=== PATIENT | female | born 1980 | race Caucasian/White ===

== ENCOUNTER 2020-11-08 22:25 | Inpatient (IN) | payer OTHER ==
[2020-11-08] MEDS ORDERED: Fentanyl 100 MCG/2 ML VIAL ONE (22:28)
[2020-11-08] MEDS ORDERED: Albuterol Sulfate 2.5 mg/3 ml Neb ONE (22:29)
[2020-11-08] MEDS ORDERED: Midazolam HCl 5 mg/ml Vial ONE (22:31)
[2020-11-08] MEDS ORDERED: Propofol 1,000 MG/100 ML VIAL IV ONE (22:31)
[2020-11-08] MEDS ORDERED: PROPOFOL 0 ML ONE (22:32)
[2020-11-08 22:44] LABS: Actual Bicarbonate (HCO3a) 18.3 mEq/L (22-28); Analyzer IN Cardio ER; Base Excess (BEa) -9.2 mEq/L (-2.0 to +3.0); CO2 Tension 46.5 mmHg (35.0-45.0); Calcium, Ionized (arterial) 1.18 mmol/L (1.12-1.30); Carboxyhemoglobin (COHb) 0.3 gm% (0.0-3.0); Hemoglobin (Hb) 11.6 g/dL (12.0-16.0); O2 Tension (PaO2), arterial 82.8 mmHg (80.0-100.0); Potassium - ABG Lab 4.33 mmol/L (3.70-5.30)
[2020-11-08 22:45] LABS: #Basophils 0.1 thou/uL (0.0-0.2); #Lymphocytes 1.5 thou/uL (1.20-3.40); #Monocytes 0.3 thou/uL (0.11-0.59); %Basophils 0.3 % (0.0-1.0); %Eosinophils 0.3 % (0.0-10.0); %Lymphocytes 8.4 % (21.0-51.0); %Monocytes 1.7 % (0.0-10.0); %Neutrophils 89.3 % (42.0-75.0); Hemoglobin 11.3 g/dL (12.0-16.0); Mean Corpuscular HGB CONC 33.7 g/dL (32.0-36.0); Mean Corpuscular Hemoglobin 30.6 pg (27.0-31.0); Mean Corpuscular Volume 90.7 fL (78.0-98.0); Mean Platelet Volume 7.4 fL (7.4-10.4); Platelet Count 368 thou/uL (130-400); Red Blood Cell (RBC) Count 3.71 mill/uL (4.20-5.40); White Blood Cell (WBC) Count 17.9 thou/uL (4.8-10.8)
[2020-11-08 22:52] LABS: ALV-art Gradient 358.175 mmHg (0-20); Puncture Site RRA; pH, Arterial 7.21 (7.35-7.45)
[2020-11-08] MEDS ORDERED: Magnesium 2 GM/50 ML BAG (IN WATER) ONE (23:05)
[2020-11-08] MEDS ORDERED: methylPREDNISolone Sod Succ 40 MG VIAL ONE (23:05)
[2020-11-08 23:09] LABS: PTT 26.8 sec (22.9-36.1); Prothrombin Time 13.4 sec (12.0-14.7)
[2020-11-08 23:27] LABS: ALT (SGPT) 14 U/L (8-55); AST (SGOT) 14 U/L (5-34); Albumin 4.3 g/dL (3.5-5.0); Alkaline Phosphatase 89 U/L (40-110); Anion Gap 13 mmol/L (10-20); BUN (Urea Nitrogen) 10 mg/dL (7.0-18.7); Bilirubin, Total Less than 0.2 mg/dL (0.2-1.2); Calc. Creatinine Clearance 0 mL/min (70-130); Calcium 8.6 mg/dL (7.8-10.44); Carbon Dioxide 19 mmol/L (22-29); Chloride 109 mmol/L (98-107); Globulin 3.3 g/dL (2.4-3.5); Glucose 135 mg/dL (70-105); Potassium 4.3 mmol/L (3.5-5.1); Protein, Total 7.6 g/dL (6.0-8.3); Sodium 137 mmol/L (136-145)
[2020-11-08] MEDS ORDERED: EPINEPHrine 4 MG in Dextrose 5% in Water 250 ML IV SCH (23:30)
[2020-11-08 23:33] LABS: Acetaminophen Less than 6.0 mcg/mL (10.0-30.0); Alcohol Less than 10 mg/dL (Less than 10); Lipase 35 U/L (8-78); Magnesium 1.8 mg/dL (1.6-2.6); Salicylate Less than 8.0 mg/dL (15.0-30.0)
[2020-11-08] MEDS ORDERED: EPINEPHrine 1 MG/10 ML Abboject SYRINGE ONE (23:41)
[2020-11-09] MEDS ORDERED: Ondansetron ODT 4 MG TAB PO PRN (00:28)
[2020-11-09] MEDS ORDERED: Acetaminophen 650 MG Suppository PR PRN (00:28)
[2020-11-09 00:30] LABS: SARS-CoV-2 NAA Rapid Test Not Detected (NotDetected)
[2020-11-09] MEDS ORDERED: Ventilator Sedation Protocol 1 EACH FS SCH (00:30)
[2020-11-09] MEDS ORDERED: DISCONTINUE PREVIOUS NARCOTIC PAIN MEDICATIONS AND BENZODIAZEPINES FS SCH (00:45)
[2020-11-09] MEDS ORDERED: Propofol BOLUS 1,000 MG/100 ML VIAL IV PRN (00:45)
[2020-11-09] MEDS ORDERED: Fentanyl BOLUS 250 ML IVPB PRN (00:45)
[2020-11-09 00:48] LABS: Amphetamine Not Detected (NotDetected); Barbiturates Screen Not Detected (NotDetected); Benzodiazepine Screen Not Detected (NotDetected); Cocaine Metabolite Screen Not Detected (NotDetected); Methadone Not Detected (NotDetected); Methamphetamine Not Detected (NotDetected); Opiate Screen Not Detected (NotDetected); Oxycodone Screen Not Detected (NotDetected); Phencyclidine (PCP) Not Detected (NotDetected); THC/Cannabinoid Screen Not Detected (NotDetected); Tricyclic Screen Not Detected (NotDetected)
[2020-11-09 01:09] LABS: Lactic Acid 3.9 mmol/L (0.5-2.2)
[2020-11-09] MEDS ORDERED: Piperacillin/Tazobactam 3.375 GM in Sodium Chloride 0.9% 100 ML IVPB SCH ×2 (02:00→08:00)
[2020-11-09] MEDS: Propofol 1,000 MG/100 ML VIAL IV PRN ×2 (03:02→07:29)
[2020-11-09] MEDS: Morphine 2 MG/ML VIAL SLOW IVP PRN ×3 (03:21→20:48)
[2020-11-09] MEDS: Lorazepam 2 MG/ML VIAL SLOW IVP PRN ×2 (03:26→07:17)
[2020-11-09 05:21] LABS: Anion Gap 20 mmol/L (10-20); BUN (Urea Nitrogen) 12 mg/dL (7.0-18.7); Calc. Creatinine Clearance 98 mL/min (70-130); Calcium 7.5 mg/dL (7.8-10.44); Carbon Dioxide 11 mmol/L (22-29); Chloride 108 mmol/L (98-107); Glucose 331 mg/dL (70-105); Potassium 3.9 mmol/L (3.5-5.1); Sodium 135 mmol/L (136-145)
[2020-11-09 05:22] LABS: Band 6 % (5-11); Hemoglobin 10.3 g/dL (12.0-16.0); Hypochromia SLIGHT = 6-15 cells (100X) (0-5/hpf); Lymphocytes 4 % (21-51); MDiff Complete? YES; Mean Platelet Volume 7.6 fL (7.4-10.4); Neutrophil 90 % (42-75); Platelet Count 438 thou/uL (130-400); Platelet Morphology Comment Appears Increased; RBC Distribution Width 14.2 % (11.5-14.5); Red Blood Cell (RBC) Count 3.32 mill/uL (4.20-5.40); White Blood Cell (WBC) Count 29.6 thou/uL (4.8-10.8)
[2020-11-09 05:23] LABS: Lactic Acid 9.6 mmol/L (0.5-2.2)
[2020-11-09] MEDS: Sodium Chloride 0.9% 1,000 ML IV SCH ×3 (05:30→20:49)
[2020-11-09] MEDS ORDERED: Vancomycin 1.5 GRAM/300 ML BAG 1.5 GM in Premix Bag 1 BAG IVPB SCH (05:50)
[2020-11-09] MEDS ORDERED: Piperacillin/Tazobactam 4.5 GM in Sodium Chloride 0.9% 100 ML IVPB SCH (05:51)
[2020-11-09] MEDS: Vancomycin HCl 1.5 GM in Sodium Chloride 0.9% 250 ML 300 ML IVPB SCH ×2 (06:07→18:35)
[2020-11-09] MEDS ORDERED: Sodium Chloride 0.9% 1,000 ML IV SCH ×3 (06:15→21:00)
[2020-11-09 06:18] LABS: Bacteria/HPF None Seen HPF (None Seen); Bilirubin Negative (Negative); Blood, Urine 1+ (Negative); Clarity Clear (Clear); Glucose, Urine (Dipstick) >=1000 mg/dL (Negative); Ketone, Urine 10 mg/dL (Negative); Leukocyte 25 Leu/uL (Negative); Nitrite Negative (Negative); Protein, Urine (Dipstick) 50 mg/dL (Neg-Trace); Specific Gravity, Urine 1.017 (1.002-1.036); Squamous Epithelial 0-3 HPF (0-3); Urobilinogen Normal mg/dL (Less than 2)
[2020-11-09 06:20] LABS: Urine Culture Reflex Yes Yes
[2020-11-09] MEDS ORDERED: Dextrose 50% Abboject 50 ML SYRINGE SLOW IVP PRN (06:36)
[2020-11-09] MEDS ORDERED: HumaLOG 300 UNITS/3 ML VIAL SC PRN (06:36)
[2020-11-09] MEDS ORDERED: Dextrose 5% in Water 1,000 ML IV PRN (06:36)
[2020-11-09] MEDS: HumaLOG 300 UNITS/3 ML VIAL SC PRN ×5 (06:42→21:24)
[2020-11-09 08:48] LABS: Lactic Acid 6.5 mmol/L (0.5-2.2)
[2020-11-09] MEDS: Famotidine 20 MG TAB PO SCH ×2 (09:37→20:49)
[2020-11-09] MEDS: Enoxaparin Sodium 40 MG/0.4 ML SYRINGE SC SCH (09:37)
[2020-11-09] MEDS: methylPREDNISolone Sod Succ 40 MG VIAL IVP SCH ×3 (09:38→21:11)
[2020-11-09] MEDS: Lactated Ringer's 1,000 ML IV SCH ×2 (10:54→21:05)
[2020-11-09 12:03] LABS: Lactic Acid 6.7 mmol/L (0.5-2.2)
[2020-11-09] MEDS: Piperacillin/Tazobactam 3.375 GM in Sodium Chloride 0.9% 100 ML IVPB SCH ×2 (13:32→20:48)
[2020-11-09] MEDS ORDERED: VANCOMYCIN IVPB PRN (14:27)
[2020-11-09 15:32] LABS: Amphetamine Not Detected (NotDetected); Barbiturates Screen Not Detected (NotDetected); Benzodiazepine Screen Detected (NotDetected); Cocaine Metabolite Screen Not Detected (NotDetected); Methadone Not Detected (NotDetected); Methamphetamine Not Detected (NotDetected); Opiate Screen Detected (NotDetected); Oxycodone Screen Not Detected (NotDetected); Phencyclidine (PCP) Not Detected (NotDetected); THC/Cannabinoid Screen Not Detected (NotDetected); Tricyclic Screen Not Detected (NotDetected)
[2020-11-09] MEDS: Acetaminophen 325 MG TAB PO PRN (16:13)
[2020-11-09 18:19] LABS: Lactic Acid 3.7 mmol/L (0.5-2.2)
[2020-11-09] MEDS ORDERED: Fentanyl CADD 0 ML ONE ×2 (18:47→19:22)
[2020-11-09] MEDS ORDERED: Fentanyl CADD 100 ML ONE (20:24)
[2020-11-09] MEDS: Fentanyl CADD 100 ML IV SCH (20:28)
[2020-11-09] MEDS: Lantus 1000 UNITS/10 ML VIAL SC SCH (21:41)
[2020-11-09] MEDS ORDERED: diphenhydrAMINE 50 MG/ML VIAL IVP SCH (22:00)
[2020-11-09] MEDS ORDERED: diphenhydrAMINE 25 MG in Sodium Chloride 0.9% 50 ML IVPB SCH (22:15)
[2020-11-09] MEDS: Ondansetron PF 4 MG/2 ML Vial IVP PRN (23:57)
[2020-11-10 00:25] LABS: Lactic Acid 2.1 mmol/L (0.5-2.2)
[2020-11-10] MEDS: methylPREDNISolone Sod Succ 40 MG VIAL IVP SCH (03:11)
[2020-11-10] MEDS: Piperacillin/Tazobactam 3.375 GM in Sodium Chloride 0.9% 100 ML IVPB SCH (03:11)
[2020-11-10 03:41] LABS: Lactic Acid 1.8 mmol/L (0.5-2.2)
[2020-11-10] MEDS: Vancomycin HCl 1.5 GM in Sodium Chloride 0.9% 250 ML 300 ML IVPB SCH (06:14)
[2020-11-10 07:41] LABS: Actual Bicarbonate (HCO3a) 19.8 mEq/L (22-28); Base Excess (BEa) -5.6 mEq/L (-2.0 to +3.0); CO2 Tension 38.4 mmHg (35.0-45.0); Calcium, Ionized (arterial) 1.14 mmol/L (1.12-1.30); Carboxyhemoglobin (COHb) 0.4 gm% (0.0-3.0); Hemoglobin (Hb) 9.7 g/dL (12.0-16.0); pH, Arterial 7.33 (7.35-7.45)
[2020-11-10 07:44] LABS: O2 Tension (PaO2), arterial 74.1 mmHg (80.0-100.0)
[2020-11-10 07:45] LABS: Puncture Site RRA
[2020-11-10] MEDS: Enoxaparin Sodium 40 MG/0.4 ML SYRINGE SC SCH (08:32)
[2020-11-10] MEDS: Famotidine 20 MG TAB PO SCH ×2 (08:33→20:11)
[2020-11-10] MEDS ORDERED: Furosemide 40 MG/4 ML VIAL SLOW IVP SCH (10:45)
[2020-11-10] MEDS ORDERED: Fentanyl CADD 100 ML ONE (11:54)
[2020-11-10] MEDS: Fentanyl CADD 100 ML IV SCH (12:03)
[2020-11-10 12:49] LABS: Lactic Acid 1.6 mmol/L (0.5-2.2)
[2020-11-10] MEDS: diphenhydrAMINE 50 MG/ML VIAL IVP PRN ×2 (13:23→20:10)
[2020-11-10] MEDS: Acetaminophen 325 MG TAB PO PRN (15:40)
[2020-11-10 17:05] LABS: Vancomycin, Trough 11.9 ug/mL
[2020-11-10] MEDS: Lantus 1000 UNITS/10 ML VIAL SC SCH (22:57)
[2020-11-11] MEDS: Propofol 1,000 MG/100 ML VIAL IV PRN (00:04)
[2020-11-11] MEDS: Acetaminophen 325 MG TAB PO PRN ×3 (01:55→20:51)
[2020-11-11] MEDS: diphenhydrAMINE 50 MG/ML VIAL IVP PRN ×2 (01:57→08:40)
[2020-11-11] MEDS ORDERED: Furosemide 40 MG/4 ML VIAL SLOW IVP SCH (07:00)
[2020-11-11 07:34] LABS: Actual Bicarbonate (HCO3a) 31.2 mEq/L (22-28); Base Excess (BEa) 3.8 mEq/L (-2.0 to +3.0); Calcium, Ionized (arterial) 1.12 mmol/L (1.12-1.30); Carboxyhemoglobin (COHb) 0.4 gm% (0.0-3.0); Hemoglobin (Hb) 12.8 g/dL (12.0-16.0); Potassium - ABG Lab 3.42 mmol/L (3.70-5.30); pH, Arterial 7.33 (7.35-7.45)
[2020-11-11 07:48] LABS: CO2 Tension 60.2 mmHg (35.0-45.0); O2 Tension (PaO2), arterial 61.7 mmHg (80.0-100.0)
[2020-11-11 07:49] LABS: Puncture Site RRA
[2020-11-11] MEDS: Enoxaparin Sodium 40 MG/0.4 ML SYRINGE SC SCH (08:39)
[2020-11-11] MEDS: Famotidine 20 MG TAB PO SCH ×2 (08:40→20:49)
[2020-11-11] MEDS: Lantus 1000 UNITS/10 ML VIAL SC SCH (21:06)
[2020-11-11] MEDS ORDERED: Furosemide 20 MG/2 ML VIAL SLOW IVP SCH (23:45)
[2020-11-12 06:17] LABS: Band 1 % (5-11); Eosinophils 1 % (0-10); Hemoglobin 9.1 g/dL (12.0-16.0); Lymphocytes 16 % (21-51); MDiff Complete? YES; Mean Corpuscular HGB CONC 32.2 g/dL (32.0-36.0); Mean Corpuscular Hemoglobin 29.8 pg (27.0-31.0); Mean Corpuscular Volume 92.7 fL (78.0-98.0); Mean Platelet Volume 7.2 fL (7.4-10.4); Monocytes 4 % (0-10); Neutrophil 78 % (42-75); Platelet Count 290 thou/uL (130-400); Platelet Morphology Comment Appears Adequate; Red Blood Cell (RBC) Count 3.06 mill/uL (4.20-5.40); White Blood Cell (WBC) Count 13.1 thou/uL (4.8-10.8)
[2020-11-12 06:29] LABS: Anion Gap 7 mmol/L (10-20); BUN (Urea Nitrogen) 11 mg/dL (7.0-18.7); Calc. Creatinine Clearance 169 mL/min (70-130); Calcium 8.2 mg/dL (7.8-10.44); Carbon Dioxide 33 mmol/L (22-29); Chloride 100 mmol/L (98-107); Glucose 115 mg/dL (70-105); Potassium 3.1 mmol/L (3.5-5.1); Sodium 137 mmol/L (136-145)
[2020-11-12] MEDS ORDERED: Potassium Chloride 20 MEQ TAB PO SCH (08:00)
[2020-11-12] MEDS: Famotidine 20 MG TAB PO SCH ×2 (09:10→22:18)
[2020-11-12] MEDS: Enoxaparin Sodium 40 MG/0.4 ML SYRINGE SC SCH (09:10)
[2020-11-12] MEDS: Acetaminophen 325 MG TAB PO PRN (10:45)
[2020-11-12] MEDS ORDERED: clonazePAM 1 MG TAB PO PRN (12:35)
[2020-11-12 13:52] VITALS: BMI 36.9
[2020-11-12] MEDS: Topiramate 100 MG TAB PO SCH (22:18)
[2020-11-12] MEDS: diphenhydrAMINE 50 MG/ML VIAL IVP PRN (22:18)
[2020-11-12] MEDS: Ondansetron PF 4 MG/2 ML Vial IVP PRN (22:18)
[2020-11-13 04:03] LABS: #Eosinphils 0.3 thou/uL (0.0-0.7); #Lymphocytes 2.4 thou/uL (1.20-3.40); #Monocytes 0.5 thou/uL (0.11-0.59); #Neutrophils 6.2 thou/uL (1.40-6.50); %Basophils 0.3 % (0.0-1.0); %Eosinophils 2.7 % (0.0-10.0); %Lymphocytes 25.9 % (21.0-51.0); %Monocytes 5.2 % (0.0-10.0); %Neutrophils 65.9 % (42.0-75.0); Hemoglobin 9.2 g/dL (12.0-16.0); Mean Corpuscular HGB CONC 33.1 g/dL (32.0-36.0); Mean Corpuscular Hemoglobin 30.7 pg (27.0-31.0); Mean Corpuscular Volume 92.7 fL (78.0-98.0); Mean Platelet Volume 7.2 fL (7.4-10.4); Platelet Count 315 thou/uL (130-400); RBC Distribution Width 13.9 % (11.5-14.5); Red Blood Cell (RBC) Count 2.98 mill/uL (4.20-5.40); White Blood Cell (WBC) Count 9.4 thou/uL (4.8-10.8)
[2020-11-13 04:21] LABS: ALT (SGPT) 30 U/L (8-55); AST (SGOT) 22 U/L (5-34); Alkaline Phosphatase 73 U/L (40-110); Anion Gap 9 mmol/L (10-20); BUN (Urea Nitrogen) 12 mg/dL (7.0-18.7); Bilirubin, Total 0.4 mg/dL (0.2-1.2); Calc. Creatinine Clearance 167 mL/min (70-130); Calcium 8.6 mg/dL (7.8-10.44); Carbon Dioxide 27 mmol/L (22-29); Chloride 104 mmol/L (98-107); Glucose 103 mg/dL (70-105); Magnesium 2.1 mg/dL (1.6-2.6); Potassium 3.4 mmol/L (3.5-5.1); Sodium 137 mmol/L (136-145)
[2020-11-13] MEDS ORDERED: Famotidine 20 MG TAB PO SCH (09:00)
[2020-11-13] MEDS: Famotidine 20 MG TAB PO SCH ×2 (09:16→20:37)
[2020-11-13] MEDS: Enoxaparin Sodium 40 MG/0.4 ML SYRINGE SC SCH (09:16)
[2020-11-13] MEDS: Topiramate 100 MG TAB PO SCH ×2 (09:16→20:37)
[2020-11-13] MEDS: Loratadine 10 MG TAB PO SCH (09:16)
[2020-11-13] MEDS: DULoxetine 60 MG CAP PO SCH (09:16)
[2020-11-13] MEDS: Acetaminophen 325 MG TAB PO PRN ×2 (17:35→21:43)
[2020-11-13] MEDS: Morphine 2 MG/ML VIAL SLOW IVP PRN ×2 (18:19→22:45)
[2020-11-14] MEDS: Morphine 2 MG/ML VIAL SLOW IVP PRN (00:57)
[2020-11-14] MEDS: Acetaminophen 325 MG TAB PO PRN ×2 (08:33→13:03)
[2020-11-14] MEDS: Enoxaparin Sodium 40 MG/0.4 ML SYRINGE SC SCH (08:33)
[2020-11-14] MEDS: Famotidine 20 MG TAB PO SCH (08:33)
[2020-11-14] MEDS: DULoxetine 60 MG CAP PO SCH (08:33)
[2020-11-14] MEDS: Topiramate 100 MG TAB PO SCH (08:33)
[2020-11-14] MEDS: Loratadine 10 MG TAB PO SCH (08:34)
[2020-11-14] MEDS: Ondansetron PF 4 MG/2 ML Vial IVP PRN (13:07)
[2020-11-14] MEDS ORDERED: Ibuprofen 200 MG TAB PO SCH (14:00)
[2020-11-14 16:26] VITALS: BP 141/85; TEMP 98.2
== END 2020-11-14 15:45 | disposition home or self-care (01) | DRG 915 ==
LOC: ERS 22:25 → ERHOLD 23:46 → CCU 11-09 02:20 → SURG A 11-13 14:04
PROVIDERS: ADMIT Student in an Organized Health Care Education/Training Program; ATTEND Internal Medicine
PROC: 3E033XZ Introduction of Vasopressor into Peripheral Vein, Percutaneous Approach (ICD-10-PCS; principal; 2020-11-08)
PROC: 5A1945Z Respiratory Ventilation, 24-96 Consecutive Hours (ICD-10-PCS; 2020-11-09)
PROC: 0BH18EZ Insertion of Endotracheal Airway into Trachea, Via Natural or Artificial Opening Endoscopic (ICD-10-PCS; 2020-11-09)
DX: T78.05XA Anaphylactic reaction due to tree nuts and seeds, initial encounter (principal); J96.01 Acute respiratory failure with hypoxia; Q79.60 Ehlers-Danlos syndrome, unspecified; J81.1 Chronic pulmonary edema; Z20.822 Contact with and (suspected) exposure to COVID-19; E66.9 Obesity, unspecified; D72.829 Elevated white blood cell count, unspecified; T38.0X5A Adverse effect of glucocorticoids and synthetic analogues, initial encounter; E11.649 Type 2 diabetes mellitus with hypoglycemia without coma; G43.909 Migraine, unspecified, not intractable, without status migrainosus; Z79.51 Long term (current) use of inhaled steroids; Z79.899 Other long term (current) drug therapy; Z91.018 Allergy to other foods; Z90.49 Acquired absence of other specified parts of digestive tract; Z68.36 Body mass index [BMI] 36.0-36.9, adult
CPT/HCPCS: 0240U; 36415; 36416; 36556; 36600; 51702; 70450; 71045; 80048; 80053; 80202; 80306; 80307; 81001; 82805; 83605; 83690; 83735; 83880; 84145; 84146; 84443; 84484; 85025; 85610; 87040; 87070; 87086; 87205; 93005; 94002; 94003; 94644; 94660; 96365; 96366; 96368; 96374; 96375; 96376; J0171; J1200; J1650; J1815; J1940; J2060; J2250; J2270; J2405; J2543; J2704; J2920; J3010; J3370; J3475; J3490; J7050; J7611